=== PATIENT | female | born 1960 | race African-American/Black ===

== ENCOUNTER 2020-04-27 05:28 | Inpatient (IN) | payer BC ==
[2020-04-27] MEDS ORDERED: HEPARIN NA (PORCINE) 5,000 UNITS/ML 1ML VIAL ONE (07:32)
[2020-04-27] MEDS ORDERED: THROMBIN (BOVINE) 20,000 UNIT VIAL TP ONE (07:32)
[2020-04-27] MEDS ORDERED: MIDAZOLAM HCL 2 MG/2 ML SINGLE DOSE VIAL ONE (07:41)
[2020-04-27] MEDS ORDERED: PROPOFOL 20 ML ONE ×11 (07:42)
[2020-04-27] MEDS ORDERED: SUCCINYLCHOLINE CHLORIDE 200 MG/10 ML SYRINGE ONE ×2 (08:08→08:26)
[2020-04-27] MEDS ORDERED: fentaNYL CITRATE 250 MCG/5 ML VIAL ONE ×3 (08:17)
[2020-04-27] MEDS ORDERED: BENZOIN/ALOE VERA/STORAX/TOLU 58 ML BOTTLE ONE (08:30)
[2020-04-27] MEDS ORDERED: THROMBIN (BOVINE) 5,000 UNIT VIAL TP ONE ×3 (08:30→09:38)
[2020-04-27] MEDS ORDERED: VANCOMYCIN 1,000 MG VIAL (RESTRICTED TO ID ONLY) ONE (08:35)
[2020-04-27] MEDS ORDERED: ceFAZolin 2 GRAM PREMIX BAG IVPB ONE (08:35)
[2020-04-27] MEDS ORDERED: ceFAZolin SODIUM 1 GM VIAL ONE ×3 (08:35→15:00)
[2020-04-27] MEDS ORDERED: VANCOMYCIN 1,000 MG VIAL (RESTRICTED TO ID ONLY) IVPB ONE (08:37)
[2020-04-27] MEDS ORDERED: ONDANSETRON 4 MG/2 ML VIAL IVPUSH PRN ×3 (12:44→13:03)
--- NOTE | 2020-04-27 12:51 | PN ---
Progress Note (short form) - Note Progress Note: 59F s/p C4 corpectomy, partial corpectomies C3, C5, C3-C5 anterior cervical decompression, cage reconstruction, and instrumented fusion POD #0. -Admit to ICU for overnight post-op airway observation. -Airway observation: In case of emergency, remove anterior cervical spine dressing, trim single end loop, and pull out running suture; ok to cut suture if needed to decompress hematoma. -Maintain head of bed 30-45 degrees. -Pain medication: per anaesthesia team; oral meds (oxycodone preferred), no PREPARATION PLANT REPAIRER; NO NSAID's. -Hard cervical spine collar. -f/u drain output. -DVT PPx: -Mechanical only: MARKELL's, SCD's. -Post-op Ancef x 3 doses. -f/u AM labs. -Incentive spirometry. -PT/OT/Rehab, OOB. -WBAT B/L LE. -PWB B/L UE: 5lbs. -d/c Westfall catheter in PACU; f/u TOV (8 hours max). -Decadron 10mg IV at midnight tonight. -Keep dressing clean & dry. -No heavy lifting (>5 lbs), bending or twisting x 6 months post op. -Start with puree diet; advance diet as tolerated. -B/L UE & LE NV checks. -f/u post-op x-rays tomorrow. -Care per ICU & [facility] primary medical hospitalist team. -Discharge planning: f/u [facility] [place] office 7-10 days after discharge; call for appointment; . Luis F Morejon MD (Orthopaedic Surgery).
--- NOTE | 2020-04-27 12:58 | OP ---
Operative Note - Note: Operative Date: 04/27/20 Pre-Operative Diagnosis: 1. 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 2. Severe C3-C5 stenosis with myelomalacia. 3. C3-C5 kyphotic deformity Operation: 1. C3-C4 discectomy. 2. C3 cranial hemicorpectomy. 3. C4 corpectomy. 4. C5 caudal hemicorpectomy. 5. C4-C5 discectomy. 6. Insertional corpectomy cage/intervertebral mechanical device C3-C5. 7. C3-C4 anterior arthrodesis. 8. C4-C5 anterior arthrodesis. 9. C3-C5 anterior instrumentation. 10. Deformity correction (kyphosis) with gnosticist of lordosis. 11. Bone autograft. 12. Bone allograft. 13. Microsurgical dissection. 14. Fluoroscopy Findings: 1. Severe C3-C5 spinal stenosis; spinal cord bulging into field following decompression 2. Anterior wedging/collapse of C5 vertebrae, necessitating hemicorpectomy to level/flatten the end plate and prevent corpectomy cage migration 3. Improvement in LUE MEP's following decompression Implants: Corpectomy Cage: [employer] [place]. 30mm x [id number]. Plate: Precision Slimplicity. 35mm. Screws: 4 x 4x12mm Post-Operative Diagnosis: Same as Pre-op Surgeon: Luis F Morejon Inclusion Special Educator: Rayshawn Morejon Anesthesiologist/HISTORIC SITES SUPERVISOR: Shade Terry Anesthesia: General Specimens Removed: C3-C4, C4-C5 discs Estimated Blood Loss (mls): 100 Drains & Tubes with Location: 1 x deep HemoVac Fluid Volume Replaced (mls): 2,000 (Crystalloid) Operative Report Dictated: Yes
[2020-04-27] MEDS ORDERED: PROMETHAZINE HCL 25 MG/1 ML VIAL IVPUSH PRN (13:02)
[2020-04-27] MEDS ORDERED: DEXAMETHASONE SOD PHOSPHATE 4 MG/1 ML VIAL IVPUSH PRN (13:03)
[2020-04-27] MEDS ORDERED: PROMETHAZINE HCL 25 MG/1 ML VIAL IVPB PRN (13:03)
[2020-04-27] MEDS ORDERED: HYDROmorphone *PCA* 10MG/50ML DISP.SYRIN PCA SCH (13:15)
[2020-04-27] MEDS ORDERED: HYDROmorphone *PCA* 10MG/50ML DISP.SYRIN ONE (13:31)
[2020-04-27] MEDS: ceFAZolin 2 GRAM PREMIX BAG IVPB SCH ×2 (15:05→20:09)
--- NOTE | 2020-04-27 19:22 | CONSULT ---
Consultation: REQUESTING PROVIDER: Dr. Morejon CONSULT REQUEST: We have been asked to medically evaluate this patient for post- op airway observation. HISTORY OF PRESENT ILLNESS: 59 YO F with PMH HTN, HLD, and depression presents with severe C3-C5 interverteberal disc prolapse with spondylotic myelopathy/radiculopathy with severe c3-c5 stenosis with myelomalacia and c3-c5 kyphotic deformity. Underwent C4 corpectomy, partial corpectomies C3, C5, C3-C5 anterior cervical decompressio n, cage reconstruction, and instrumented fusion today. Admitted to ICU for post- op airway observation Her current condition began in August 2019 with neck pain associated with tingling and right pain in her Right shoulder that later spread to her hand. She later developed sharp Left buttock pain. Patient tried using NSAIDs and tylenol to alleviate the pain. The pain was worsened by movement, bending, and prolonged sitting. The pain did not improve, so she saw her orthopedic surgeon. Patient underwent surgery today. Patient does not assisstive devices for walking. PCP: Dr. Chuy Pak PSH: 2 knee replacements, tibial fracture repair, gallbladder, uterine artery embolization for fibroids REVIEW OF SYSTEMS: CONSTITUTIONAL: Absent: fever, chills, diaphoresis, generalized weakness, malaise, loss of appetite, weight change HEENT: Absent: rhinorrhea, nasal congestion, throat pain, throat swelling, difficulty swallowing, mouth swelling, ear pain, eye pain, visual changes CARDIOVASCULAR: Absent: chest pain, syncope, palpitations, irregular heart rate, lightheadedness, peripheral edema RESPIRATORY: Absent: cough, shortness of breath, dyspnea with exertion, orthopnea, wheezing, stridor, hemoptysis GASTROINTESTINAL: Absent: abdominal pain, abdominal distension, nausea, vomiting, diarrhea, constipation, melena, hematochezia GENITOURINARY: Absent: dysuria, frequency, urgency, hesitancy, hematuria, flank pain, genital pain MUSCULOSKELETAL: neck pain Absent: myalgia, arthralgia, joint swelling, back pain, SKIN: Absent: rash, itching, pallor HEMATOLOGIC/IMMUNOLOGIC: Absent: easy bleeding, easy bruising, lymphadenopathy, frequent infections ENDOCRINE: Absent: unexplained weight gain, unexplained weight loss, heat intolerance, cold intolerance NEUROLOGIC: Absent: headache, focal weakness or paresthesias, dizziness, unsteady gait, seizure, mental status changes, bladder or bowel incontinence PSYCHIATRIC: Absent: anxiety, depression, suicidal or homicidal ideation, hallucinations. PHYSICAL EXAMINATION Vital Signs - 24 hr 04/27/20 04/27/20 04/27/20 06:35 06:38 06:39 Temperature 97.3 F L 97.3 F L Pulse Rate 63 63 Respiratory 20 20 Rate Blood Pressure 125/77 125/77 O2 Sat by Pulse 99 99 99 Oximetry (%) 04/27/20 04/27/20 04/27/20 13:00 13:15 13:30 Temperature 98.4 F Pulse Rate 95 H 88 7 L Respiratory 11 19 11 Rate Blood Pressure 137/72 138/69 114/95 O2 Sat by Pulse 99 100 100 Oximetry (%) 04/27/20 04/27/20 04/27/20 13:45 13:48 14:00 Temperature Pulse Rate 82 82 72 Respiratory 15 15 12 Rate Blood Pressure 136/81 136/81 143/76 O2 Sat by Pulse 100 100 100 Oximetry (%) 04/27/20 04/27/20 04/27/20 14:15 14:20 14:30 Temperature Pulse Rate 74 77 80 Respiratory 12 12 18 Rate Blood Pressure 128/71 143/76 126/74 O2 Sat by Pulse 100 100 100 Oximetry (%) 04/27/20 04/27/20 04/27/20 14:45 14:50 15:00 Temperature Pulse Rate 70 79 73 Respiratory 12 13 18 Rate Blood Pressure 96/77 126/73 126/73 O2 Sat by Pulse 100 100 100 Oximetry (%) 04/27/20 04/27/20 04/27/20 15:15 15:19 15:20 Temperature 98.4 F Pulse Rate 88 70 72 Respiratory 12 12 17 Rate Blood Pressure 143/67 143/70 143/70 O2 Sat by Pulse 100 100 100 Oximetry (%) 04/27/20 04/27/20 04/27/20 15:55 16:44 17:00 Temperature 98.3 F Pulse Rate 76 84 70 Respiratory 20 20 20 Rate Blood Pressure 148/67 135/92 141/69 O2 Sat by Pulse 100 100 100 Oximetry (%) 04/27/20 04/27/20 04/27/20 17:55 18:00 19:10 Temperature Pulse Rate 80 76 Respiratory 20 20 20 Rate Blood Pressure 141/69 148/67 O2 Sat by Pulse 100 100 100 Oximetry (%) GENERAL: Awake, alert, and fully oriented, in no acute distress. HEENT: head NC, AT, PERRL, MMM NECK: anterior incision , nakia drain LUNGS: Breath sounds equal, clear to auscultation bilaterally. No wheezes, and no crackles. No accessory muscle use. HEART: Regular rate and rhythm, normal S1 and S2 without murmur, rub or gallop. ABDOMEN: obese Soft, nontender, not distended, normoactive bowel sounds, no guarding, no rebound EXTREMITIES: 2+ pulses, warm, well-perfused. No cyanosis. No clubbing. Cap refill <2 seconds. No peripheral edema. b/l UE & LE strength 5/5, sensation intact NEUROLOGICAL: Normal speech. gait not assessed PSYCHIATRIC: Cooperative. Good eye contact. Appropriate mood and affect. SKIN: Warm, dry, normal turgor, no rashes or lesions noted. Laboratory Results - last 24 hr 04/27/20 06:13 Blood Type O POSITIVE Antibody Screen Negative Active Medications Generic Name Dose Route Start Last Admin Trade Name Freq PRN Reason Stop Dose Admin Atorvastatin Calcium 10 mg 04/27/20 22:00 Lipitor - PO HS BRENDA Cefazolin Sodium/Dextrose 2 gm 04/27/20 14:00 04/27/20 15:05 Ancef 2 Gm Premixed Ivpb - IVPB 04/28/20 02:01 2 gm Q6H BRENDA Administration Dexamethasone Sodium Phosphate 10 mg 04/27/20 23:45 Decadron Injection - IVPUSH 04/27/20 23:46 ONCE ONE Dexamethasone Sodium Phosphate 4 mg 04/27/20 13:03 Decadron Injection - IVPUSH ONCE PRN NAUSEA AND/OR VOMITING Diphenhydramine HCl 12.5 mg 04/27/20 13:03 Benadryl Injection - IVPUSH ONCE PRN FOR ITCHING Fentanyl 50 mcg 04/27/20 13:02 04/27/20 13:42 Sublimaze Injection - IVPUSH 50 mcg [id number] PRN Administration PAIN-PACU ORDER X 4 DOSES ONLY Hydrochlorothiazide 12.5 mg 04/28/20 10:00 Hctz - PO DAILY BRENDA Hydromorphone HCl 10 mg 04/27/20 13:15 04/27/20 13:48 Hydromorphone 10 Mg/50 Ml-Ns PLANT WIRE CHIEF 04/28/20 13:14 10 mg PLANT WIRE CHIEF BRENDA Administration Protocol Lactated Ringer's 1,000 mls @ 125 mls/hr 04/27/20 12:45 Lactated Ringers Solution IV ASDIR BRENDA Lisinopril 10 mg 04/28/20 10:00 Prinivil PO DAILY BRENDA Metoprolol Tartrate 50 mg 04/27/20 22:00 Lopressor - PO BID BRENDA Nicotine 21 mg 04/28/20 10:00 Nicoderm Patch - TD DAILY [facility] Ondansetron HCl 4 mg 04/27/20 12:44 Zofran Injection IVPUSH Q6H PRN NAUSEA AND/OR VOMITING Ondansetron HCl 4 mg 04/27/20 13:02 Zofran Injection IVPUSH Q6H PRN NAUSEA AND/OR VOMITING Ondansetron HCl 4 mg 04/27/20 13:03 Zofran Injection IVPUSH Q4H PRN NAUSEA AND/OR VOMITING Oxycodone HCl 5 mg 04/27/20 12:44 Roxicodone - PO Q4H PRN PAIN LEVEL 1-5 Oxycodone HCl 10 mg 04/27/20 12:44 Roxicodone - PO Q4H PRN PAIN LEVEL 6-10 Paroxetine HCl 10 mg 04/28/20 10:00 Paxil - PO DAILY [facility] Promethazine HCl 12.5 mg 04/27/20 13:02 Phenergan Injection - IVPUSH Q6H PRN NAUSEA-FOR RESCUE AFTER 15 MIN Promethazine HCl 12.5 mg 04/27/20 13:03 Phenergan Injection - IVPB Q6H PRN NAUSEA AND/OR VOMITING ASSESSMENT/PLAN: 59 YO F with PMH HTN, HLD, and depression presents for POD#0 c4 corpectomy, partial corpectomies C3, C5, C3-C5 anterior cervical decompression, cage reconstruction, and instrumented fusion. Admitted to ICU for post-op airway observation. Neuro -POD#0 c4 corpectomy, partial corpectomies C3, C5, C3-C5 anterior cervical decompression, cage reconstruction, and instrumented fusion - In emergency situations, remove anterior cervical spine dressing, trim single end loop, and pull out running suture. Okay to cut suture to decompress hematoma if needed -Maintain head of bed 30-45 degrees. -oxycodone for pain. no PLANT WIRE CHIEF; NO NSAID's. -Post-op cefazolin 2 gm IVPB Q6H for 3 doses. -encourage incentive spirometry. -PT/OT/Rehab, OOB. -WBAT B/L LE. -Decadron 10mg IV at midnight -f/u spinal x-ray. f/u drain output -nakia drain draining serosanguineous blood Cardio HTN: restart home rx metoprolol 50 mg PO BID, lisinopril 10 mg PO daily, hydrochlorothiazide 12.5 mg PO daily HLD: simvastatin 10 mg PO HS Pulm no acute issues at this time GI no acute issues at this time promethazine 12.5 mg IV push Q6H PRN for nausea/vomiting ondansetron 4 mg IV push Q6 H PRN (2 doses max), and ondansetron 4 mg IV PUSH Q4H PRN (max 4 doses) Renal no lab values in record. will order in AM. 2800 ml I/ 400 ml O/2400 ml balance ID COVID negative ENDO no acute issues at this time will order A1C #Psych depression -home rx paroxetine 12.5 mg PO daily #FEN LR @125 ml/hr monitor lytes puree diet. advance as tolerated #DVT PPX -Mechanical only (MARKELL's, SCD's) per ortho note #DISPO maintain ICU Dispo: We will continue to follow the patient. Thank you for this consultative opportunity. Visit type - Emergency Visit Emergency Visit: Yes ED Registration Date: 04/27/20 Care time: The patient presented to the Emergency Department on the above date and was hospitalized for further evaluation of their emergent condition. - New Patient This patient is new to me today: No - Critical Care Critical Care patient: No ATTENDING PHYSICIAN STATEMENT I saw and evaluated the patient. I reviewed the resident's note and discussed the case with the resident. I agree with the resident's findings and plan as documented. SUBJECTIVE: OBJECTIVE: ASSESSMENT AND PLAN:
[2020-04-27] MEDS: METOPROLOL TARTRATE 50 MG TABLET (FP) PO SCH (21:04)
[2020-04-27] MEDS: ATORVASTATIN CA 10 MG TABLET (FP) PO SCH (21:04)
[2020-04-27] MEDS: oxyCODONE HCL 5 MG TABLET PO PRN (22:48)
[2020-04-27] MEDS: LACTATED RINGERS SOLUTION 1,000 ML IV SCH (23:30)
[2020-04-27] MEDS ORDERED: DEXAMETHASONE SOD PHOSPHATE 10 MG/1 ML VIAL IVPUSH ONE (23:45)
[2020-04-28] MEDS: ceFAZolin 2 GRAM PREMIX BAG IVPB SCH (01:29)
[2020-04-28 06:20] LABS: BASO % 0.3 % (0-2.0); HEMATOCRIT 33.4 % (32.4-45.2); HEMOGLOBIN 11.1 GM/dL (10.7-15.3); LYMPH % 10.1 % (8-40); MCH 31.4 pg (25.7-33.7); MCHC 33.3 g/dl (32.0-36.0); MEAN CELL VOLUME 94.5 fl (80-96); MEAN PLT VOLUME 8.8 fl (7.5-11.1); MONO % 1.1 % (3.8-10.2); NEUT % 88.5 % (42.8-82.8); PLATELET COUNT 273 K/MM3 (134-434); RBC 3.53 M/mm3 (3.60-5.2); RDW 12.7 % (11.6-15.6); WHITE BLOOD COUNT 13.5 K/mm3 (4.0-10.0)
[2020-04-28 06:53] LABS: ALBUMIN 3.3 g/dl (3.4-5.0); BILIRUBIN,TOTAL 0.6 mg/dL (0.2-1); CALCIUM 8.4 mg/dL (8.5-10.1); CREATININE 0.8 mg/dL (0.55-1.3); MAGNESIUM 1.6 mg/dL (1.8-2.4); POTASSIUM 4.3 mmol/L (3.5-5.1); TOT PROT 6.5 g/dl (6.4-8.2)
[2020-04-28] MEDS ORDERED: MAGNESIUM SULF 50% (8.12 MEQ/2 ML-1 GM VIAL) IVPB ONE (08:36)
[2020-04-28] MEDS ORDERED: MAGNESIUM SULFATE IN WATER 2 GM/50 ML IVPB IVPB ONE (08:45)
[2020-04-28] MEDS: LISINOPRIL 10 MG TABLET (FP) PO SCH (10:13)
[2020-04-28] MEDS: METOPROLOL TARTRATE 50 MG TABLET (FP) PO SCH ×2 (10:13→21:53)
[2020-04-28] MEDS: HYDROCHLOROTHIAZIDE 12.5 MG CAPSULE (FP) PO SCH (10:14)
[2020-04-28] MEDS: PARoxetine HCL 10 MG TABLET PO SCH (10:16)
[2020-04-28] MEDS: NICOTINE 21 MG/24 HOURS TOPICAL PATCH TD SCH (10:16)
[2020-04-28] MEDS: LACTATED RINGERS SOLUTION 1,000 ML IV SCH ×2 (10:16→19:00)
--- NOTE | 2020-04-28 10:45 | PN ---
Teaching Attending Note Name of Resident: Lewis Onofre ATTENDING PHYSICIAN STATEMENT I saw and evaluated the patient. I reviewed the resident's note and discussed the case with the resident. I agree with the resident's findings and plan as documented. SUBJECTIVE: Pt seen and examined in the ICU. Pain relatively controlled. No nausea/vomiting. Tolerated clears this AM. No flatus yet. OBJECTIVE: Vital Signs Period Temp Pulse Resp BP Sys/Fonseca Pulse Ox Last 24 Hr 98.1 F-98.4 F 7-95 11-20 96-148/63-95 98-100 Intake & Output 04/25/20 04/26/20 04/27/20 04/28/20 23:59 23:59 23:59 23:59 Intake Total 2800 Output Total 400 Balance 2400 Weight 89.358 kg Gen: NAD in cervical collar Heart: RRR Lung: decreased breath sounds at the bases Abd: soft, nontender Ext: no edema CBC, BMP 04/28/20 05:50 04/28/20 05:50 Active Medications Atorvastatin Calcium (Lipitor -) 10 mg PO HS [facility] Last Admin: 04/27/20 21:04 Dose: 10 mg Documented by: Dexamethasone Sodium Phosphate (Decadron Injection -) 4 mg IVPUSH ONCE PRN PRN Reason: NAUSEA AND/OR VOMITING Diphenhydramine HCl (Benadryl Injection -) 12.5 mg IVPUSH ONCE PRN PRN Reason: FOR ITCHING Fentanyl (Sublimaze Injection -) 50 mcg IVPUSH [id number] PRN PRN Reason: PAIN-PACU ORDER X 4 DOSES ONLY Last Admin: 04/27/20 13:42 Dose: 50 mcg Documented by: Hydrochlorothiazide (Hctz -) 12.5 mg PO DAILY [facility] Last Admin: 04/28/20 10:14 Dose: 12.5 mg Documented by: Hydromorphone HCl (Hydromorphone 10 Mg/50 Ml-Ns) 10 mg PLUG DRILL OPERATOR PLUG DRILL OPERATOR [facility]; Protocol Stop: 04/28/20 13:14 Last Admin: 04/27/20 13:48 Dose: 10 mg Documented by: Lactated Ringer's (Lactated Ringers Solution) 1,000 mls @ 125 mls/hr IV ASDIR [facility] Last Admin: 04/28/20 10:16 Dose: 125 mls/hr Documented by: Lisinopril (Prinivil) 10 mg PO DAILY [facility] Last Admin: 04/28/20 10:13 Dose: 10 mg Documented by: Metoprolol Tartrate (Lopressor -) 50 mg PO BID [facility] Last Admin: 04/28/20 10:13 Dose: 50 mg Documented by: Nicotine (Nicoderm Patch -) 21 mg TD DAILY [facility] Last Admin: 04/28/20 10:16 Dose: 21 mg Documented by: Ondansetron HCl (Zofran Injection) 4 mg IVPUSH Q6H PRN PRN Reason: NAUSEA AND/OR VOMITING Ondansetron HCl (Zofran Injection) 4 mg IVPUSH Q6H PRN PRN Reason: NAUSEA AND/OR VOMITING Ondansetron HCl (Zofran Injection) 4 mg IVPUSH Q4H PRN PRN Reason: NAUSEA AND/OR VOMITING Oxycodone HCl (Roxicodone -) 5 mg PO Q4H PRN PRN Reason: PAIN LEVEL 1-5 Last Admin: 04/27/20 22:48 Dose: 5 mg Documented by: Oxycodone HCl (Roxicodone -) 10 mg PO Q4H PRN PRN Reason: PAIN LEVEL 6-10 Paroxetine HCl (Paxil -) 10 mg PO DAILY [facility] Last Admin: 04/28/20 10:16 Dose: 10 mg Documented by: Promethazine HCl (Phenergan Injection -) 12.5 mg IVPUSH Q6H PRN PRN Reason: NAUSEA-FOR RESCUE AFTER 15 MIN Promethazine HCl (Phenergan Injection -) 12.5 mg IVPB Q6H PRN PRN Reason: NAUSEA AND/OR VOMITING ASSESSMENT AND PLAN: Cervical Spinal Stenosis with Myelopathy and Radiculopathy s/p C3-C4 discectomy/cranial hemicorpectomy/C4 corpectomy/C5 caudal hemicorpectomy/C4-C5 discectomy/Insertional corpectomy cage/intervertebral mechanical device C3-C5 HTN Hyperlipidemia - pain control - incentive spirometry - PO/activity/noguera/dispo per surgery - DVT prophylaxis
--- OUTSIDE RECORDS SUMMARY | 2020-04-28 11:55 | XMS ---
:1960 Author Organization [facility] Support Name Relationship Address Phone VERIZON Unavailable [address] [place] [address] MARILYN KING DAUGHTER [address] [phone] [place] [address] Re-disclosure Warning The records that you are about to access may contain information from federally- assisted alcohol or drug abuse programs. If such information is present, then the following federally mandated warning applies: This information has been disclosed to you from records protected by federal confidentiality rules (42 CFR part 2). The federal rules prohibit you from making any further disclosure of this information unless further disclosure is expressly permitted by the written consent of the person to whom it pertains or as otherwise permitted by 42 CFR part 2. A general authorization for the release of medical or other information is NOT sufficient for this purpose. The Federal rules restrict any use of the information to criminally investigate or prosecute any alcohol or drug abuse patient.The records that you are about to access may contain highly sensitive health information, the redisclosure of which is protected by Article 27-F of the [facility] Public Health law. If you continue you may haveaccess to information: Regarding HIV / AIDS; Provided by facilities licensed or operated by the [facility] Office of Mental Health; or Provided by the [facility] Office for People With Developmental Disabilities. If such information is present, then the following [facility] mandated warning applies: This information has been disclosed to you from confidential records which are protected by state law. State law prohibits you from making any further disclosure of this information without the specific written consent of the person to whom it pertains, or as otherwise permitted by law. Any unauthorized further disclosure in violation of state law may result in a fine or long term sentence or both. A general authorization for the release of medical or other information is NOT sufficient authorization for further disclosure. Insurance Providers Payer name Policy type / Policy ID Covered Covered democrat's Policy Plan Coverage type democrat ID relationship to Orte[employer] Information ortega BC OUT OF [id number] [id number] BC OUT OF [id number] SP [id number] [id number] Results ID Date Data Source [id number] 04/22/2020 01:30:00 PM EDT [facility] Name Value Range Interpretation Description Data Sup porting Code Source(s) Document(s ) SARS [facility] coronavirus 2 RNA This lab was ordered by [facility] and reported by [facility]. Procedure
--- NOTE | 2020-04-28 12:27 | PN ---
Physical Exam: SUBJECTIVE: Patient seen and examined. No overnight events. Endorses mild pain that is controlled with medication. Denies N/V, flatus, or bowel movement. 10 cc of sanguinous fluid draining from nakia drain. Tolerated pureed diet overnight. OBJECTIVE: Vital Signs Period Temp Pulse Resp BP Sys/Fonseca Pulse Ox Last 24 Hr 98.1 F-98.4 F 7-95 11-20 96-148/63-95 98-100 GENERAL: Awake, alert, and fully oriented, in no acute distress. HEENT: head NC, AT, PERRL, MMM NECK: anterior incision , nakia drain LUNGS: Breath sounds equal, clear to auscultation bilaterally. No wheezes, and no crackles. No accessory muscle use. HEART: Regular rate and rhythm, normal S1 and S2 without murmur, rub or gallop. ABDOMEN: obese Soft, nontender, not distended, normoactive bowel sounds, no guarding, no rebound EXTREMITIES: 2+ DP/TP pulses, warm, well-perfused. No cyanosis. No clubbing. Cap refill <2 seconds. No peripheral edema. b/l UE & LE strength 5/5, sensation intact NEUROLOGICAL: Cranial nerves II through XII intact. Normal speech. gait not assessed PSYCHIATRIC: Cooperative. Good eye contact. Appropriate mood and affect. SKIN: Warm, dry, normal turgor, no rashes or lesions noted. Laboratory Results - last 24 hr 04/28/20 04/28/20 05:50 05:50 WBC 13.5 H RBC 3.53 L Hgb 11.1 Hct 33.4 MCV 94.5 MCH 31.4 MCHC 33.3 RDW 12.7 Plt Count 273 MPV 8.8 Absolute Neuts (auto) 11.9 H Neutrophils % 88.5 H Lymphocytes % 10.1 Monocytes % 1.1 L Eosinophils % 0.0 Basophils % 0.3 Nucleated RBC % 0 Sodium 141 Potassium 4.3 Chloride 109 H Carbon Dioxide 28 Anion Gap 5 L BUN 12.0 Creatinine 0.8 Est GFR (CKD-EPI)AfAm 92.87 Est GFR (CKD-EPI)NonAf 80.13 Random Glucose 142 H Calcium 8.4 L Phosphorus 4.0 Magnesium 1.6 L Total Bilirubin 0.6 AST 54 H ALT 57 Alkaline Phosphatase 64 Total Protein 6.5 Albumin 3.3 L Active Medications Generic Name Dose Route Start Last Admin Trade Name Freq PRN Reason Stop Dose Admin Atorvastatin Calcium 10 mg 04/27/20 22:00 04/27/20 21:04 Lipitor - PO 10 mg HS BRENDA Administration Dexamethasone Sodium Phosphate 4 mg 04/27/20 13:03 Decadron Injection - IVPUSH ONCE PRN NAUSEA AND/OR VOMITING Diphenhydramine HCl 12.5 mg 04/27/20 13:03 Benadryl Injection - IVPUSH ONCE PRN FOR ITCHING Fentanyl 50 mcg 04/27/20 13:02 04/27/20 13:42 Sublimaze Injection - IVPUSH 50 mcg [id number] PRN Administration PAIN-PACU ORDER X 4 DOSES ONLY Hydrochlorothiazide 12.5 mg 04/28/20 10:00 04/28/20 10:14 Hctz - PO 12.5 mg DAILY BRENDA Administration Hydromorphone HCl 10 mg 04/27/20 13:15 04/27/20 13:48 Hydromorphone 10 Mg/50 Ml-Ns MANAGER BEVERAGE 04/28/20 13:14 10 mg MANAGER BEVERAGE BRENDA Administration Protocol Lactated Ringer's 1,000 mls @ 125 mls/hr 04/27/20 12:45 04/28/20 10:16 Lactated Ringers Solution IV 125 mls/hr ASDIR BRENDA Administration Lisinopril 10 mg 04/28/20 10:00 04/28/20 10:13 Prinivil PO 10 mg DAILY BRENDA Administration Metoprolol Tartrate 50 mg 04/27/20 22:00 04/28/20 10:13 Lopressor - PO 50 mg BID BRENDA Administration Nicotine 21 mg 04/28/20 10:00 04/28/20 10:16 Nicoderm Patch - TD 21 mg DAILY BRENDA Administration Ondansetron HCl 4 mg 04/27/20 12:44 Zofran Injection IVPUSH Q6H PRN NAUSEA AND/OR VOMITING Ondansetron HCl 4 mg 04/27/20 13:02 Zofran Injection IVPUSH Q6H PRN NAUSEA AND/OR VOMITING Ondansetron HCl 4 mg 04/27/20 13:03 Zofran Injection IVPUSH Q4H PRN NAUSEA AND/OR VOMITING Oxycodone HCl 5 mg 04/27/20 12:44 09/14/20 22:48 Roxicodone - PO 5 mg Q4H PRN Administration PAIN LEVEL 1-5 Oxycodone HCl 10 mg 04/27/20 12:44 Roxicodone - PO Q4H PRN PAIN LEVEL 6-10 Paroxetine HCl 10 mg 04/28/20 10:00 04/28/20 10:16 Paxil - PO 10 mg DAILY BRENDA Administration Promethazine HCl 12.5 mg 04/27/20 13:02 Phenergan Injection - IVPUSH Q6H PRN NAUSEA-FOR RESCUE AFTER 15 MIN Promethazine HCl 12.5 mg 04/27/20 13:03 Phenergan Injection - IVPB Q6H PRN NAUSEA AND/OR VOMITING ASSESSMENT/PLAN: 59 YO F with PMH HTN, HLD, and depression presents for POD#1 c4 corpectomy, partial corpectomies C3, C5, C3-C5 anterior cervical decompression, cage reconstruction, and instrumented fusion. Admitted to ICU for post-op airway observation. Neuro -POD#1 c4 corpectomy, partial corpectomies C3, C5, C3-C5 anterior cervical decompression, cage reconstruction, and instrumented fusion - In emergency situations, remove anterior cervical spine dressing, trim single end loop, and pull out running suture. Okay to cut suture to decompress hematoma if needed -Maintain head of bed 30-45 degrees. -oxycodone for pain. no MANAGER BEVERAGE; NO NSAID's. -s/p cefazolin 2 gm IVPB Q6H for 3 doses. -encourage incentive spirometry. -PT/OT/Rehab, OOB. -WBAT B/L LE. -Decadron 10mg IV at midnight -f/u spinal x-ray. f/u drain output -nakia drain draining blood -X-ray c-spine: reveals anterior fusion from C3-C5. There is drain/brace/straightening. Some arthritic findings Cardio HTN: home rx metoprolol 50 mg PO BID, lisinopril 10 mg PO daily, hydrochlorothiazide 12.5 mg PO daily HLD: simvastatin 10 mg PO HS Pulm no acute issues at this time GI no acute issues at this time promethazine 12.5 mg IV push Q6H PRN for nausea/vomiting ondansetron 4 mg IV push Q6 H PRN (2 doses max), and ondansetron 4 mg IV PUSH Q4H PRN (max 4 doses) Heme leukocytosis. WBC 13.5, likely 2/2 decadron Renal no acute issues BUN/Cr 12/0.8 2800 ml I/ 400 ml O/2400 ml balance ID COVID negative. remains afebrile ENDO no acute issues at this time will order A1C #Psych depression -home rx paroxetine 12.5 mg PO daily #FEN LR @125 ml/hr monitor lytes puree diet. advance as tolerated #DVT PPX -Mechanical only (MARKELL's, SCD's) per ortho note #DISPO maintain ICU Visit type - Emergency Visit Emergency Visit: Yes ED Registration Date: 04/27/20 Care time: The patient presented to the Emergency Department on the above date and was hospitalized for further evaluation of their emergent condition. - New Patient This patient is new to me today: No - Critical Care Critical Care patient: No ATTENDING PHYSICIAN STATEMENT I saw and evaluated the patient. I reviewed the resident's note and discussed the case with the resident. I agree with the resident's findings and plan as documented. SUBJECTIVE: OBJECTIVE: ASSESSMENT AND PLAN:
--- NOTE | 2020-04-28 14:00 | PN ---
Progress Note (short form) - Note Progress Note: Anesthesiologist post op note, POD#1. S/P 1. C3-C4 discectomy. 2. C3 cranial hemicorpectomy. 3. C4 corpectomy. 4. C5 caudal hemicorpectomy. 5. C4-C5 discectomy. 6. Insertional corpectomy cage/intervertebral mechanical device C3-C5. 7. C3-C4 anterior arthrodesis. 8. C4-C5 anterior arthrodesis. 9. C3-C5 anterior instrumentation. 10. Deformity correction (kyphosis) with pentecostal of lordosis. 11. Bone autograft. 12. Bone allograft. 13. Microsurgical dissection. 14. Fluoroscopy under GETA. ANIMATION ARTIST dilaudid for post op pain. Patient seen and examined. VSS. Sitting in the chair. Pain 5/10. Using ANIMATION ARTIST. Will continue ANIMATION ARTIST. will follow up tomorrow. No apparent post anesthesia complictions.
[2020-04-28] MEDS ORDERED: HYDROmorphone *PCA* 10MG/50ML DISP.SYRIN PCA SCH (19:15)
[2020-04-28] MEDS ORDERED: PCA PUMP NR ONE ×2 (20:11→20:36)
[2020-04-28] MEDS: ATORVASTATIN CA 10 MG TABLET (FP) PO SCH (21:53)
[2020-04-28] MEDS: oxyCODONE HCL 5 MG TABLET PO PRN (21:54)
[2020-04-29] MEDS: oxyCODONE HCL 5 MG TABLET PO PRN ×4 (04:11→21:13)
[2020-04-29] MEDS ORDERED: HYDROmorphone *PCA* 10MG/50ML DISP.SYRIN PCA SCH (08:15)
[2020-04-29] MEDS: HYDROCHLOROTHIAZIDE 12.5 MG CAPSULE (FP) PO SCH (09:41)
[2020-04-29] MEDS: LISINOPRIL 10 MG TABLET (FP) PO SCH (09:41)
[2020-04-29] MEDS: PARoxetine HCL 10 MG TABLET PO SCH (09:41)
[2020-04-29 09:42] LABS: HEMATOCRIT 33.1 % (32.4-45.2); HEMOGLOBIN 11.3 GM/dL (10.7-15.3); MCH 32.4 pg (25.7-33.7); MCHC 34.1 g/dl (32.0-36.0); MEAN CELL VOLUME 94.9 fl (80-96); MEAN PLT VOLUME 9.2 fl (7.5-11.1); PLATELET COUNT 266 K/MM3 (134-434); RBC 3.49 M/mm3 (3.60-5.2); RDW 12.6 % (11.6-15.6); WHITE BLOOD COUNT 13.3 K/mm3 (4.0-10.0)
[2020-04-29] MEDS: NICOTINE 21 MG/24 HOURS TOPICAL PATCH TD SCH (09:42)
[2020-04-29] MEDS: METOPROLOL TARTRATE 50 MG TABLET (FP) PO SCH ×2 (09:42→21:08)
[2020-04-29] MEDS: BENZOCAINE/MENTH/CETYLPYRD CL 1 EACH LOZENGE MM PRN (10:00)
[2020-04-29 10:15] LABS: ALBUMIN 3.3 g/dl (3.4-5.0); BLOOD UREA NITROGEN 10.3 mg/dL (7-18); CALCIUM 8.7 mg/dL (8.5-10.1); POTASSIUM 3.7 mmol/L (3.5-5.1)
[2020-04-29 10:28] LABS: CREATININE 0.7 mg/dL (0.55-1.3); PHOSPHOROUS 2.5 mg/dL (2.5-4.9); TOT PROT 6.4 g/dl (6.4-8.2)
[2020-04-29] MEDS: ACETAMINOPHEN 325 MG TABLET (FP) PO PRN ×2 (10:39→16:00)
--- NOTE | 2020-04-29 11:41 | PN ---
Teaching Attending Note Name of Resident: Lewis Onofre ATTENDING PHYSICIAN STATEMENT I saw and evaluated the patient. I reviewed the resident's note and discussed the case with the resident. I agree with the resident's findings and plan as documented. SUBJECTIVE: Pt seen and examined in the ICU. Pain relatively controlled. No nausea/vomiting. Walked with PT. OBJECTIVE: Vital Signs Period Temp Pulse Resp BP Sys/Fonseca Pulse Ox Last 24 Hr 98.0 F-98.8 F 64-90 12-18 111-180/56-86 94-99 Intake & Output 04/26/20 04/27/20 04/28/20 04/29/20 23:59 23:59 23:59 23:59 Intake Total 2800 1150 50 Output Total 400 710 15 Balance 2400 440 35 Weight 89.358 kg 89 kg Gen: NAD in cervical collar Heart: RRR Lung: decreased breath sounds at the bases Abd: soft, nontender Ext: no edema CBC, BMP 04/29/20 08:40 04/29/20 08:40 Active Medications Acetaminophen (Tylenol -) 650 mg PO Q6H PRN PRN Reason: Fever Last Admin: 04/29/20 10:39 Dose: 650 mg Documented by: Atorvastatin Calcium (Lipitor -) 10 mg PO HS BRENDA Last Admin: 04/28/20 21:53 Dose: 10 mg Documented by: Benzocaine/Menthol (Cepacol Lozenge -) 1 each MM PRN PRN PRN Reason: SORE THROAT Dexamethasone Sodium Phosphate (Decadron Injection -) 4 mg IVPUSH ONCE PRN PRN Reason: NAUSEA AND/OR VOMITING Diphenhydramine HCl (Benadryl Injection -) 12.5 mg IVPUSH ONCE PRN PRN Reason: FOR ITCHING Fentanyl (Sublimaze Injection -) 50 mcg IVPUSH [id number] PRN PRN Reason: PAIN-PACU ORDER X 4 DOSES ONLY Last Admin: 04/27/20 13:42 Dose: 50 mcg Documented by: Hydrochlorothiazide (Hctz -) 12.5 mg PO DAILY [facility] Last Admin: 04/29/20 09:41 Dose: 12.5 mg Documented by: Hydromorphone HCl (Hydromorphone 10 Mg/50 Ml-Ns) 10 mg WOODWORKER HELPER WOODWORKER HELPER [facility]; Protocol Stop: 04/30/20 08:14 Lisinopril (Prinivil) 10 mg PO DAILY [facility] Last Admin: 04/29/20 09:41 Dose: 10 mg Documented by: Metoprolol Tartrate (Lopressor -) 50 mg PO BID [facility] Last Admin: 04/29/20 09:42 Dose: 50 mg Documented by: Nicotine (Nicoderm Patch -) 21 mg TD DAILY [facility] Last Admin: 04/29/20 09:42 Dose: 21 mg Documented by: Ondansetron HCl (Zofran Injection) 4 mg IVPUSH Q4H PRN PRN Reason: NAUSEA AND/OR VOMITING Oxycodone HCl (Roxicodone -) 5 mg PO Q4H PRN PRN Reason: PAIN LEVEL 1-5 Last Admin: 04/27/20 22:48 Dose: 5 mg Documented by: Oxycodone HCl (Roxicodone -) 10 mg PO Q4H PRN PRN Reason: PAIN LEVEL 6-10 Last Admin: 04/29/20 07:59 Dose: 10 mg Documented by: Paroxetine HCl (Paxil -) 10 mg PO DAILY [facility] Last Admin: 04/29/20 09:41 Dose: 10 mg Documented by: Promethazine HCl (Phenergan Injection -) 12.5 mg IVPB Q6H PRN PRN Reason: NAUSEA AND/OR VOMITING ASSESSMENT AND PLAN: Cervical Spinal Stenosis with Myelopathy and Radiculopathy s/p C3-C4 discectomy/cranial hemicorpectomy/C4 corpectomy/C5 caudal hemicorpectomy/C4-C5 discectomy/Insertional corpectomy cage/intervertebral mechanical device C3-C5 HTN Hyperlipidemia - pain control - incentive spirometry - PO/activity/dispo per surgery - DVT prophylaxis
--- NOTE | 2020-04-29 11:58 | PN ---
Physical Exam: SUBJECTIVE: Patient seen and examined. In the evening, PEGA DEVELOPER was stopped and patient was given oxycodone. However, patient continues to have significant pain, so PEGA DEVELOPER was reordered in AM. 15 mL blood drained from Davol drain. Endorsed L sided headache and throat pain, which was managed with lozenges. Endorsed flatus, but denies BM, N/V. Tolerating diet. 100.3 F temp, so tylenol ordered OBJECTIVE: Vital Signs Period Temp Pulse Resp BP Sys/Fonseca Pulse Ox Last 24 Hr 98.0 F-98.8 F 64-90 12-18 111-180/56-86 94-99 GENERAL: Awake, alert, and fully oriented, in no acute distress. HEENT: head NC, AT, PERRL, MMM NECK: anterior incision , nakia drain LUNGS: Breath sounds equal, clear to auscultation bilaterally. No wheezes, and no crackles. No accessory muscle use. HEART: Regular rate and rhythm, normal S1 and S2 without murmur, rub or gallop. ABDOMEN: obese Soft, nontender, not distended, normoactive bowel sounds, no guarding, no rebound EXTREMITIES: 2+ DP/TP pulses, warm, well-perfused. No cyanosis. No clubbing. Cap refill <2 seconds. No peripheral edema. b/l UE & LE strength 5/5, sensation intact NEUROLOGICAL: Cranial nerves II through XII intact. Normal speech. gait not assessed PSYCHIATRIC: Cooperative. Good eye contact. Appropriate mood and affect. SKIN: Warm, dry, normal turgor, no rashes or lesions noted. Laboratory Results - last 24 hr 04/29/20 04/29/20 08:40 08:40 WBC 13.3 H RBC 3.49 L Hgb 11.3 Hct 33.1 MCV 94.9 MCH 32.4 MCHC 34.1 RDW 12.6 Plt Count 266 MPV 9.2 Sodium 143 Potassium 3.7 Chloride 107 Carbon Dioxide 30 Anion Gap 6 L BUN 10.3 Creatinine 0.7 Est GFR (CKD-EPI)AfAm 109.15 Est GFR (CKD-EPI)NonAf 94.17 Random Glucose 87 Calcium 8.7 Phosphorus 2.5 Magnesium 2.0 Total Bilirubin 2.0 H AST 39 H ALT 50 Alkaline Phosphatase 68 Total Protein 6.4 Albumin 3.3 L Active Medications Generic Name Dose Route Start Last Admin Trade Name Freq PRN Reason Stop Dose Admin Acetaminophen 650 mg 04/29/20 10:27 04/29/20 10:39 Tylenol - PO 650 mg Q6H PRN Administration Fever Atorvastatin Calcium 10 mg 04/27/20 22:00 04/28/20 21:53 Lipitor - PO 10 mg HS BRENDA Administration Benzocaine/Menthol 1 each 04/29/20 09:08 Cepacol Lozenge - MM PRN PRN SORE THROAT Dexamethasone Sodium Phosphate 4 mg 04/27/20 13:03 Decadron Injection - IVPUSH ONCE PRN NAUSEA AND/OR VOMITING Diphenhydramine HCl 12.5 mg 04/27/20 13:03 Benadryl Injection - IVPUSH ONCE PRN FOR ITCHING Fentanyl 50 mcg 04/27/20 13:02 04/27/20 13:42 Sublimaze Injection - IVPUSH 50 mcg [id number] PRN Administration PAIN-PACU ORDER X 4 DOSES ONLY Hydrochlorothiazide 12.5 mg 04/28/20 10:00 04/29/20 09:41 Hctz - PO 12.5 mg DAILY BRENDA Administration Hydromorphone HCl 10 mg 04/29/20 08:15 Hydromorphone 10 Mg/50 Ml-Ns PEGA DEVELOPER 04/30/20 08:14 PEGA DEVELOPER [facility] Protocol Lisinopril 10 mg 04/28/20 10:00 04/29/20 09:41 Prinivil PO 10 mg DAILY BRENDA Administration Metoprolol Tartrate 50 mg 04/27/20 22:00 04/29/20 09:42 Lopressor - PO 50 mg BID BRENDA Administration Nicotine 21 mg 04/28/20 10:00 04/29/20 09:42 Nicoderm Patch - TD 21 mg DAILY BRENDA Administration Ondansetron HCl 4 mg 04/27/20 13:03 Zofran Injection IVPUSH Q4H PRN NAUSEA AND/OR VOMITING Oxycodone HCl 5 mg 04/27/20 12:44 04/27/20 22:48 Roxicodone - PO 5 mg Q4H PRN Administration PAIN LEVEL 1-5 Oxycodone HCl 10 mg 04/27/20 12:44 04/29/20 07:59 Roxicodone - PO 10 mg Q4H PRN Administration PAIN LEVEL 6-10 Paroxetine HCl 10 mg 04/28/20 10:00 04/29/20 09:41 Paxil - PO 10 mg DAILY BRENDA Administration Promethazine HCl 12.5 mg 04/27/20 13:03 Phenergan Injection - IVPB Q6H PRN NAUSEA AND/OR VOMITING ASSESSMENT/PLAN: 59 YO F with PMH HTN, HLD, and depression presents for POD#2 c4 corpectomy, partial corpectomies C3, C5, C3-C5 anterior cervical decompression, cage reconstruction, and instrumented fusion. Admitted to ICU for post-op airway observation. Neuro -POD#2 c4 corpectomy, partial corpectomies C3, C5, C3-C5 anterior cervical decompression, cage reconstruction, and instrumented fusion - In emergency situations, remove anterior cervical spine dressing, trim single end loop, and pull out running suture. Okay to cut suture to decompress hematoma if needed -Maintain head of bed 30-45 degrees. -oxycodone for pain. NO NSAID's. -encourage incentive spirometry. -PT/OT/Rehab, OOB. -WBAT B/L LE. -davol drain draining blood -X-ray c-spine: reveals anterior fusion from C3-C5. There is drain/brace/straightening. Some arthritic findings Cardio HTN: home rx metoprolol 50 mg PO BID, lisinopril 10 mg PO daily, hydrochloro thiazide 12.5 mg PO daily HLD: simvastatin 10 mg PO HS Pulm no acute issues at this time GI promethazine 12.5 mg IV push Q6H PRN for nausea/vomiting ondansetron 4 mg IV push Q6 H PRN (2 doses max), and ondansetron 4 mg IV PUSH Q4H PRN (max 4 doses) bilirubin increased from 0.6 to 2. will continue to monitor Heme leukocytosis. WBC decreased from 13.5 to 13.3. likely 2/2 decadron Renal no acute issues BUN/Cr 10.3/0.7 1150 ml I/ 710 ml O/440 ml balance ID COVID negative. 100.3F, Tylenol ordered -s/p 3 doses ancef ENDO no acute issues at this time f/u A1C #Psych depression -home rx paroxetine 12.5 mg PO daily #FEN LR @125 ml/hr monitor lytes puree diet. advance as tolerated #DVT PPX -Mechanical only (MARKELL's, SCD's) per ortho note #DISPO maintain ICU Visit type - Emergency Visit Emergency Visit: Yes ED Registration Date: 04/27/20 Care time: The patient presented to the Emergency Department on the above date and was hospitalized for further evaluation of their emergent condition. - New Patient This patient is new to me today: No - Critical Care Critical Care patient: No ATTENDING PHYSICIAN STATEMENT I saw and evaluated the patient. I reviewed the resident's note and discussed the case with the resident. I agree with the resident's findings and plan as documented. SUBJECTIVE: OBJECTIVE: ASSESSMENT AND PLAN:
--- NOTE | 2020-04-29 13:54 | PN ---
Progress Note (short form) - Note Progress Note: POD#2 Pt states that she was oob and ambulated yesterday around the ICU. Tolerated a diet. Today she had a slight headache which improved with pain medication. Voiding without difficulty Vital Signs Period Temp Pulse Resp BP Sys/Fonseca Pulse Ox Last 24 Hr 98.0 F-98.8 F 64-90 12-18 111-180/56-86 94-99 ALIRIO: 10/15 ml serosangrenous GEN: A&0x3, NAD Heent: ALIRIO removed with the tip intact. Dressing changed. inc c/d/i with steri- strips. 4x4 gauze and tegaderm applied. Neuro: cmm operator strength equal b/l. 5/5 dorsi/plantar/EHL b/l CBC, BMP 04/29/20 08:40 16/ 08:40 A/p: 59 yo female s/p C3-C4 discectomy with C3& C5 hemicorpectomy /C4 corpectomy and cage C3-C5 placement. Deformity correction (kyphosis) with christianity of lordosis . Bone autograft/Bone allograft Pt SURVEY PARTY CHIEF discontinued and will continue with tylenol/oral oxycodone OOB and ambulate/incentive spirometer Drain removed today Plan for discharge in the am, if afebrile and pain controlled D/w Dr. Morejon
[2020-04-29 14:07] VITALS: BMI 32.5
--- NOTE | 2020-04-29 15:33 | HOSP ---
Physical Examination Vital Signs: Vital Signs Temperature 98.2 F 04/29/20 05:00 Pulse Rate 86 04/29/20 10:20 Respiratory Rate 16 04/29/20 10:20 Blood Pressure 138/71 04/29/20 10:20 O2 Sat by Pulse Oximetry (%) 94 L 04/29/20 08:21 Labs: CBC, BMP 04/29/20 08:40 04/29/20 08:40 Hospitalist Encounter Outcome: Patient is a 59 YO F with PMH of HTN, HLD, and depression who presented for surgery for C4 corpectomy, partial corpectomies C3, C5, C3-C5 anterior cervical decompression, cage reconstruction, and instrumented fusion. Her preoperative diagnosis was 1. 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 2. Severe C3-C5 stenosis with myelomalacia. 3. C3-C5 kyphotic deformity. She was admitted to the ICU for post-operative airway observation. Patient had dilaudid ACQUISITIONS EDITOR pump, but is now off of the ACQUISITIONS EDITOR pump. She is on oxycodone for pain and cepacol for throat pain/discomfort. Now s/p doses of ancef. Per ortho note, NO NSAID's were given. X-ray of her c-spine revealed anterior fusion from C3-C5 and also showed a drain/brace/straightening. Patient walked 200 feet on POD#1, and then she walked 300 feet on POD#2. Nausea/vomiting was managed with promethazine and ondansetron. Patient had a temperatuer of 100.3 F today, so Tylenol was given. CBC revealed a leukocytosis that is likely 2/2 dexamethasone. Leukocytosis is improving from 13.5 to 13.3. Mechanical only (MARKELL's, SCD's) per ortho note. Patient is stable for transfer to med surg
--- NOTE | 2020-04-29 17:09 | HOSP ---
Subjective - Review of Symptoms Events since last encounter: Pt was admitted for cervical repair (C3-C4/C4-C5 discectomy, cage insertion, and bone allograft/autograft) and monitored in ICU for pain control and neuro ciro cks. Pt is active with PT, pain is controlled with PO meds. She is able to be monitored on med/surg. A&Ox3, in no acute distress no soft tissue induration in neck CTAB RRR, no murmur moving all 4 extremities Physical Examination Vital Signs: Vital Signs Temperature 98.2 F 04/29/20 05:00 Pulse Rate 88 04/29/20 14:00 Respiratory Rate 16 04/29/20 14:00 Blood Pressure 159/53 L 04/29/20 14:00 O2 Sat by Pulse Oximetry (%) 94 L 04/29/20 08:21 Labs: CBC, BMP 04/29/20 08:40 04/29/20 08:40 Visit type - Emergency Visit Emergency Visit: Yes ED Registration Date: 04/27/20 Care time: The patient presented to the Emergency Department on the above date and was hospitalized for further evaluation of their emergent condition. - New Patient This patient is new to me today: Yes Date on this admission: 04/29/20 - Critical Care Critical Care patient: No
--- NOTE | 2020-04-29 19:33 | OP ---
DATE OF OPERATION: 04/27/2020 SURGEON: Luis F Morejon MD CLINICAL INTERVIEWER: Rayshawn Morejon MD PRE-OPERATIVE DIAGNOSIS: 1. C3-C4, C4-C5 intervertebral disk disorders with associated spondylotic: A. Myelopathy. B. Radiculopathy. 2. Severe C3-C5 cervical spinal stenosis with neurogenic claudication. 3. Cervical kyphosis/deformity. 4. Multi-level axial segmental instability cervical spine with associated myofascial pain complex and cervicothoracic enthesopathy. 5. Progressive neurological decline with gait imbalance/disorder, extremity weakness, and fall risk. POST-OPERATIVE DIAGNOSIS: 1. C3-C4, C4-C5 intervertebral disk disorders with associated spondylotic: A. Myelopathy. B. Radiculopathy. 2. Severe C3-C5 cervical spinal stenosis with neurogenic claudication. 3. Cervical kyphosis/deformity. 4. Multi-level axial segmental instability cervical spine with associated myofascial pain complex and cervicothoracic enthesopathy. 5. Progressive neurological decline with gait imbalance/disorder, extremity weakness, and fall risk. SURGICAL PROCEDURE: 1. C4 corpectomy with resection of osteophytes and posterior longitudinal ligament (92683-60). 2. C3 cranial hemicorpectomy with resection of osteophytes and posterior longitudinal ligament (59410-51). 3. C5 caudal hemicorpectomy with resection of osteophytes and posterior longitudinal ligament (54672-07). 4. Insertion of biomechanical device/corpectomy cage C3-C5 (73371). 5. C3-C5 anterior instrumentation (83720-60). 6. C3-C4 arthrodesis. (85202) 7. C4-C5 arthrodesis. (44688) 8. Kyphosis deformity correction/islam of lordosis. (66267) 9. Bone autograft (65291). 10. Bone allograft (61788). 11. Microsurgical dissection (28069). 12. Fluoroscopy. (09154-85) FINDINGS: 1. Severe C3-C5 spinal stenosis; spinal cord bulging into field following decompression 2. Anterior wedging/collapse of C5 vertebrae, necessitating hemicorpectomy to level/flatten the end plate and prevent corpectomy cage migration 3. Improvement in LUE MEP's following decompression IMPLANTS: 1. Cage: Choice Spine Middle [place] [id number]. 2. Plate: Precision Spine Simplicity 35mm. 3. Screws: 4 x 12x4mm. ANESTHESIOLOGIST: Shade Terry MD ANESTHESIA: General endotracheal tube anesthesia. POSITION: Supine. INCISION: Right oblique anterior. ESTIMATED BLOOD LOSS: 100cc. TRANSFUSIONS: None. INTRAVENOUS FLUID: 2L crystalloid. SPECIMENS: C3-4, C4-C5 discs. DRAINS: 1 x deep HemoVac. COMPLICATIONS: None. URINE OUTPUT: See anesthesia record. BACTERIOLOGY: None. CLOSURE: 2-0 Vicryl and 3-0 Biosyn absorbable suture. INDICATIONS: The patient was indicated for a C3-C5 anterior cervical decompression, reconstruction, and instrumented fusion to prevent the progression of already worsening neurological decline. The patient was identified in the holding area by her armband. A long discussion was held with the patient regarding the risks, benefits and alternatives of the above-named procedure. The risks include, but are not limited to: pain, bleeding, infection, damage to surrounding structures (including nerves, blood vessels, skin, ligaments, tendons, and bone), dysphagia, dysphonia, nerve palsy, weakness, limp, wound complications, pseudarthrosis, failure of fusion, failure of hardware/implants/reduction, need for further surgery, blood clots, myocardial infarction, pulmonary embolism, cerebrovascular event, anesthesia complications, neurological injury, loss of function, and . Benefits as mentioned above. Alternatives include no surgery. All questions were answered. The patient understood and agreed to the procedure. Informed consent was obtained, witnessed, and verified by hospital nursing staff. The patients anterior neck was marked. The patient was then seen by the anesthesia and nursing staff and then taken to the operating room. PROCEDURE: The patient was brought into the operating room and transferred to the OR table, and secured with a safety strap. Consent and the operative site were again verified with the patient, the nursing team, the surgical team, and the anesthesiology team. Anesthesia, IV antibiotics, TXA, and 10mg IV Decadron were then administered without complication. A time out was done, led by me the attending surgeon. An indwelling Westfall catheter was successfully inserted by the nursing team. The intra-operative neural monitoring team then set up for the case. Pre-positional baseline SSEP, MEP, & EEG readings were recorded. The patient was positioned in the supine position with arms tucked and placed under gentle traction using tape over her shoulders. All bony prominences were very well padded. A bump was placed beneath the scapulae to facilitate extension of the patients neck. A C-arm fluoroscopy unit was positioned perpendicularly to the table and maintained at the level of the head, except when needed. The intended surgical level was confirmed using fluoroscopy, and a deep neck crease in the lines of Rebecca at this level was targeted for incision. Intra-operative neural monitoring revealed no change between pre-positional and post-positional readings. The operative site was then prepped and in the standard sterile fashion using betadine prep and scrub, wiped off with alcohol, Duraprep applied, and then free draped. Pre-operative imaging was available for intra-operative evaluation. Time-out was again done, and the case began. A standard, Olivier-Alvarez approach to the cervical spine was utilized. An oblique anterior incision was made on the right side of the patients neck in the lines of Rebecca in standard fashion. Numerous distended branches of the anterior jugular vein were encountered, tied off, and cauterized in order to continue the exposure. Dissection was carried through the investing layer of fascia and finger palpation was used to create a plane lateral to the strap muscles between the carotid sheath and the viscera. Next, the esophagus and trachea were visualized as was the carotid sheath. Hand-held retractors were used to retract these structures safely out of the way, allowing direct access to the anterior cervical spine. The prevertebral fascia overlying the anterior cervical spine was then split using peanut swabs. An 18-gauge spinal needle was bent and used to localize the indicated surgical level under fluoroscopy. Next, the medial borders of the Longus Coli musculature were gently released over the anterolateral borders of the vertebral bodies and disc spaces using monopolar electrocautery. A self-retaining retractor system was used with the teeth of the blades retracting the belly of the longus coli muscles, and with the retractors themselves safely retracting the carotid sheath laterally and viscera medially. One 12mm Davenport pin was then placed into the center of the vertebral bodies of C3 and C5. The Davenport pin placement was confirmed via fluorscopy. A Davenport pin distractor system was applied with no distraction at this stage. Additionally, the distractor barrels served as superior and inferior soft tissue retractors. The microscope was then introduced. Bridging osteophytes had grown over the disc spaces at C3-C4 and C4-C5. These osteophytes were resected using a pituitary rongeur. Using monopolar electrocautery, the annulus of the C3-C4, and C4-C5 discs were incised. The discs were morselized using a curette and excised using a pituitary rongeur. This completed the C4-C5, and C5-C6 discectomies. A Matchstick nathaniel-tipped mode was then used to cut a trough onto the left and right-hand side of the C4 vertebral body just medial to the waist of the vertebral body, and thus medial to the plane of the vertebral arteries. The C3-C4, and C4-C5 disc spaces were then also burred out. The remaining bone was delivered with a Leksell rongeur. All of this bone was saved for grafting purposes as an autologous graft. A 4mm ball-shaped, nathaniel-tipped mode was utilized to complete the debulking of the residual bone. This completed the C4 corpectomy. An undercutting partial corpectomies were performed at C3 and at C5 using a mode and Kerrison rongeurs. A corpectomy (at C4) and partial corpectomies (at C3 and C5) were performed in order to be able to decompress stenosis material (posterior longitudinal ligament complex and osteophytes) posterior to the vertebral bodies that would otherwise be inaccessible. This material had to be decompressed in order to relieve the severe spinal stenosis from C3-C5 that otherwise would not have been removed simply by performing discectomies at C3-C4, and C4-C5. A small Logan type elevator was utilized to ensure that all PLL complex was free from adhesion to the theca from C3-C5. There was no evidence of OPLL. The visible posterior longitudinal ligament was released and excised utilizing Kerrison rongeur upcuts. This ensured complete decompression proximally and distally from C3-C5. Immediately, the theca expanded anteriorly into the decompressed space and evidence of chronic stenosis was evidence by its residual hourglass configuration. An angled ball-tipped probe was gently used to ensure that all foramina bilaterally from C3-C5 were decompressed. Our decompression of the cervical spine was successfully achieved. Gentle distraction was applied to the Davenport pins. Next, a Choice Spine Middle [place] intervertebral cage was measured using calipers and osteotomes to fit the space created. The cage was filled with autologous bone derived from the corpectomies, along with demineralized bone matrix putty allograft. The cage was then gently tapped into position. This completing the anterior column reconstruction and anterior arthrodesis of the cervical spine. The patients head was gently flexed under live fluoroscopy to allow the teeth of the cage to engage the adjacent bone and ensure compression fixation of the cage itself. The was no evidence of mal-position or instability of the cage with flexion and extension of the cervical spine during live fluoroscopy. The Davenport pins were removed and the holes from the Davenport pins at C3 and C5 were plugged with bone wax. A Precision Spine Slimplicity plate was sized and 12mm screws were used to provide solid fixation of the plate to the anterior C3 and C5 vertebral bodies. Fluoroscopic images in the AP and lateral plane showed implants to be in good position and with good overall alignment of the cervical spine. The screws were then locked using the plate-screw locking mechanism. The anesthesiologist then performed a Valsalva maneuver up to 40mmHg. There was no evidence of dural defect, cerebrospinal fluid leak, or uncontrollable bleeding. Throughout the case, copious irrigation was performed, and hemostasis was assured. A deep 1/8 HemoVac drain was placed. The wound was closed primarily using 2-0 Vicryl and 3-0 Biosyn sutures. A sterile compressive dressing was applied. Sponge and needle counts were correct at the end of the case, and I, the attending surgeon, was present and scrubbed throughout the case. A Greenbush-J hard cervical collar was then applied. The patient was then extubated by the anesthesia staff without incident or complications and was then transferred to the recovery room in stable condition having tolerated the procedure well. OVERALL COMMENTS: Overall the case went well. Intra-operative neural monitoring readings improved from baseline at the end of the case. MD SANGEETA De La Torre/[id number] MTDPeter
[2020-04-29] MEDS: ATORVASTATIN CA 10 MG TABLET (FP) PO SCH (21:08)
--- NOTE | 2020-04-29 22:06 | PN ---
Teaching Attending Note Name of Resident: Erendira Ferguson ATTENDING PHYSICIAN STATEMENT I saw and evaluated the patient. I reviewed the resident's note and discussed the case with the resident. I agree with the resident's findings and plan as documented. SUBJECTIVE: Patient seen and examined at bedside, ambulating around room, C collar placed, denies complaints. VSS. OBJECTIVE: GA AAox3, speaking in full sentences HEENT NC, c collar placed, neck w/ limited ROM Chest CTAB, no crackles or wheezing CVS S1, S2+, RRR Abd SOft, NT, ND ,BS+ Ext no LE edema Vital Signs (72 hours) 04/27/20 04/27/20 04/27/20 06:35 06:38 06:39 Temperature 97.3 F L 97.3 F L Pulse Rate 63 63 Respiratory 20 20 Rate Blood Pressure 125/77 125/77 O2 Sat by Pulse 99 99 99 Oximetry (%) 04/27/20 04/27/20 04/27/20 13:00 13:15 13:30 Temperature 98.4 F Pulse Rate 95 H 88 7 L Respiratory 11 19 11 Rate Blood Pressure 137/72 138/69 114/95 O2 Sat by Pulse 99 100 100 Oximetry (%) 04/27/20 04/27/20 04/27/20 13:45 13:48 14:00 Temperature Pulse Rate 82 82 72 Respiratory 15 15 12 Rate Blood Pressure 136/81 136/81 143/76 O2 Sat by Pulse 100 100 100 Oximetry (%) 04/27/20 04/27/20 04/27/20 14:15 14:20 14:30 Temperature Pulse Rate 74 77 80 Respiratory 12 12 18 Rate Blood Pressure 128/71 143/76 126/74 O2 Sat by Pulse 100 100 100 Oximetry (%) 04/27/20 04/27/20 04/27/20 14:45 14:50 15:00 Temperature Pulse Rate 70 79 73 Respiratory 12 13 18 Rate Blood Pressure 96/77 126/73 126/73 O2 Sat by Pulse 100 100 100 Oximetry (%) 04/27/20 04/27/20 04/27/20 15:15 15:19 15:20 Temperature 98.4 F Pulse Rate 88 70 72 Respiratory 12 12 17 Rate Blood Pressure 143/67 143/70 143/70 O2 Sat by Pulse 100 100 100 Oximetry (%) 0904/27/20 04/27/20 15:55 16:44 17:00 Temperature 98.3 F Pulse Rate 76 84 70 Respiratory 20 20 20 Rate Blood Pressure 148/67 135/92 141/69 O2 Sat by Pulse 100 100 100 Oximetry (%) 04/27/20 04/27/20 04/27/20 17:55 18:00 19:10 Temperature Pulse Rate 80 76 Respiratory 20 20 20 Rate Blood Pressure 141/69 148/67 O2 Sat by Pulse 100 100 100 Oximetry (%) 04/27/20 04/27/20 04/27/20 20:00 21:00 22:00 Temperature Pulse Rate 82 66 Respiratory 18 12 17 Rate Blood Pressure 135/65 128/67 O2 Sat by Pulse 98 100 100 Oximetry (%) 04/28/20 04/28/20 04/28/20 00:00 02:00 04:00 Temperature 98.1 F Pulse Rate 58 L 54 L 54 L Respiratory 17 16 16 Rate Blood Pressure 117/66 119/64 118/63 O2 Sat by Pulse 100 100 100 Oximetry (%) 04/28/20 04/28/20 04/28/20 06:00 09:00 11:00 Temperature 98.6 F Pulse Rate 58 L 54 L 60 Respiratory 16 18 18 Rate Blood Pressure 145/70 130/67 125/66 O2 Sat by Pulse 100 99 Oximetry (%) 04/28/20 04/28/20 04/28/20 12:00 14:00 16:00 Temperature 98.8 F Pulse Rate 66 64 67 Respiratory Rate Blood Pressure 132/66 124/62 128/76 O2 Sat by Pulse 98 99 Oximetry (%) 04/28/20 04/28/20 04/28/20 18:00 20:00 22:00 Temperature 98.0 F Pulse Rate 73 79 90 Respiratory 18 16 14 Rate Blood Pressure 139/68 116/63 122/66 O2 Sat by Pulse Oximetry (%) 04/29/20 04/29/20 04/29/20 00:00 02:00 05:00 Temperature 98.2 F Pulse Rate 80 79 76 Respiratory 12 14 15 Rate Blood Pressure 111/56 L 119/68 180/64 H O2 Sat by Pulse 94 L Oximetry (%) 04/29/20 04/29/20 04/29/20 08:00 08:21 10:00 Temperature 100.3 F H Pulse Rate 88 86 Respiratory 16 15 16 Rate Blood Pressure 125/86 138/71 O2 Sat by Pulse 94 L Oximetry (%) 04/29/20 04/29/20 04/29/20 12:00 14:00 16:00 Temperature 99.6 F Pulse Rate 74 88 94 H Respiratory 18 16 18 Rate Blood Pressure 132/68 159/53 L 139/69 O2 Sat by Pulse Oximetry (%) 04/29/20 18:00 Temperature Pulse Rate 83 Respiratory 17 Rate Blood Pressure 165/71 O2 Sat by Pulse Oximetry (%) Laboratory Results - last 24 hr 04/29/20 04/29/20 04/29/20 08:40 08:40 08:40 WBC 13.3 H RBC 3.49 L Hgb 11.3 Hct 33.1 MCV 94.9 MCH 32.4 MCHC 34.1 RDW 12.6 Plt Count 266 MPV 9.2 Sodium 143 Potassium 3.7 Chloride 107 Carbon Dioxide 30 Anion Gap 6 L BUN 10.3 Creatinine 0.7 Est GFR (CKD-EPI)AfAm 109.15 Est GFR (CKD-EPI)NonAf 94.17 Random Glucose 87 Hemoglobin A1c % 4.8 Calcium 8.7 Phosphorus 2.5 Magnesium 2.0 Total Bilirubin 2.0 H AST 39 H ALT 50 Alkaline Phosphatase 68 Total Protein 6.4 Albumin 3.3 L Home Medications Medication Instructions Recorded Hydrochlorothiazide [Hctz -] 12.5 mg PO DAILY 10/24/19 Lisinopril 10 mg PO DAILY 10/24/19 Metoprolol Tartrate 50 mg PO BID 10/24/19 Paroxetine HCl [Paxil Cr] 12.5 mg PO DAILY 10/24/19 Simvastatin 10 mg PO HS 10/24/19 oxyCODONE HCL [Roxicodone -] 5 mg PO PRN PRN 04/24/20 Nicotine Patch [Nicoderm Patch -] 1 patch TD DAILY 04/27/20 Current Medications Generic Name Dose Route Start Last Admin Trade Name Freq PRN Reason Stop Dose Admin Acetaminophen 650 mg 04/29/20 10:27 04/29/20 16:00 Tylenol - PO 325 mg Q6H PRN Administration Fever Atorvastatin Calcium 10 mg 04/27/20 22:00 04/29/20 21:08 Lipitor - PO 10 mg HS BRENDA Administration Benzocaine/Menthol 1 each 04/29/20 09:08 04/29/20 10:00 Cepacol Lozenge - MM 1 each PRN PRN Administration SORE THROAT Dexamethasone Sodium Phosphate 4 mg 04/27/20 13:03 Decadron Injection - IVPUSH ONCE PRN NAUSEA AND/OR VOMITING Diphenhydramine HCl 12.5 mg 04/27/20 13:03 Benadryl Injection - IVPUSH ONCE PRN FOR ITCHING Hydrochlorothiazide 12.5 mg 04/28/20 10:00 04/29/20 09:41 Hctz - PO 12.5 mg DAILY BRENDA Administration Lisinopril 10 mg 04/28/20 10:00 04/29/20 09:41 Prinivil PO 10 mg DAILY BRENDA Administration Metoprolol Tartrate 50 mg 04/27/20 22:00 04/29/20 21:08 Lopressor - PO 50 mg BID BRENDA Administration Nicotine 21 mg 04/28/20 10:00 04/29/20 09:42 Nicoderm Patch - TD 21 mg DAILY BRENDA Administration Ondansetron HCl 4 mg 04/27/20 13:03 Zofran Injection IVPUSH Q4H PRN NAUSEA AND/OR VOMITING Oxycodone HCl 5 mg 04/27/20 12:44 04/29/20 21:13 Roxicodone - PO 5 mg Q4H PRN Administration PAIN LEVEL 1-5 Oxycodone HCl 10 mg 04/27/20 12:44 04/29/20 07:59 Roxicodone - PO 10 mg Q4H PRN Administration PAIN LEVEL 6-10 Paroxetine HCl 10 mg 04/28/20 10:00 04/29/20 09:41 Paxil - PO 10 mg DAILY BRENDA Administration Promethazine HCl 12.5 mg 04/27/20 13:03 Phenergan Injection - IVPB Q6H PRN NAUSEA AND/OR VOMITING ASSESSMENT AND PLAN: 59 F s/p C3-C5 corpectomy HTN HLD Depression Plan: Pain controlled off [facility]STITUTION[facility] NUTRITION CONSULTANT Tylenol for pain control Bump in Tbili, ?steroid induced, hydrate and follow, denies abd. pain PT referral NSG following DVT ppx: Ambulation Monitor on floors
[2020-04-30] MEDS: oxyCODONE HCL 5 MG TABLET PO PRN ×2 (06:06→15:30)
[2020-04-30 07:23] LABS: BASO % 0.5 % (0-2.0); EOS % 1.4 % (0-4.5); HEMATOCRIT 34.5 % (32.4-45.2); HEMOGLOBIN 11.6 GM/dL (10.7-15.3); LYMPH % 23.3 % (8-40); MCH 31.5 pg (25.7-33.7); MCHC 33.7 g/dl (32.0-36.0); MEAN CELL VOLUME 93.5 fl (80-96); MEAN PLT VOLUME 8.9 fl (7.5-11.1); MONO % 6.2 % (3.8-10.2); NEUT % 68.6 % (42.8-82.8); PLATELET COUNT 284 K/MM3 (134-434); RBC 3.69 M/mm3 (3.60-5.2); RDW 12.6 % (11.6-15.6)
[2020-04-30 07:50] LABS: ALBUMIN 3.4 g/dl (3.4-5.0); BILIRUBIN,TOTAL 1.6 mg/dL (0.2-1); CREATININE 0.7 mg/dL (0.55-1.3); MAGNESIUM 1.8 mg/dL (1.8-2.4); PHOSPHOROUS 3.3 mg/dL (2.5-4.9); POTASSIUM 3.7 mmol/L (3.5-5.1); TOT PROT 6.6 g/dl (6.4-8.2)
--- NOTE | 2020-04-30 08:39 | PN ---
Progress Note (short form) - Note Progress Note: POD#3 Pt with slight left sided headache today, slightly improved from yesterday. Tolerating a diet. Flatus/no BM. OOB and ambulating. Vital Signs Period Temp Pulse Resp BP Sys/Fonseca Pulse Ox Last 24 Hr 99.4 F-100.3 F 70-94 14-18 132-165/53-88 94-98 GEN: A&0x3, NAD Heent: Dressing c/d/i. No masses/swelling. Collar from orthopedic service in [facility]. Abd: soft, non-distended. non-tender Neuro: studio assistant strength equal b/l. 5/5 dorsi/plantar/EHL b/l. no calf swelling or tenderness b/l. CBC, BMP 09/17/ 06:08 / 06:08 Hepatic Panel Total Bilirubin 1.6 mg/dL (0.2-1) H /17/ 06:08 AST 56 U/L (15-37) H / 06:08 ALT 71 U/L (13-61) H 04/30/20 06:08 Alkaline Phosphatase 71 U/L (45-117) 17/ 06:08 Albumin 3.4 g/dl (3.4-5.0) // 06:08 A/p: 59 yo female s/p C3-C4 discectomy with C3& C5 hemicorpectomy /C4 corpectomy and cage C3-C5 placement. Deformity correction (kyphosis) with christian of lordosis . Bone autograft/Bone allograft. POD#3 Pts surgical pain well controlled with oral pain medications. Script sent for oxycodone. She has valium and a few percocet from her previous prescriptons at home. Added fiorcet for headache today and at home. Nicotine patches at home. Plan for discharge to home today D/w Dr. Morejon and the medical team. Home surgical discharge instructions completed.
[2020-04-30 09:21] LABS: BLOOD UREA NITROGEN 8.2 mg/dL (7-18)
[2020-04-30] MEDS ORDERED: ACETAMINOPHEN/CAFFEINE/BUTALBITAL 1 TAB PO ONE (09:30)
[2020-04-30] MEDS: NICOTINE 21 MG/24 HOURS TOPICAL PATCH TD SCH (09:40)
[2020-04-30] MEDS: LISINOPRIL 10 MG TABLET (FP) PO SCH (09:41)
[2020-04-30] MEDS: PARoxetine HCL 10 MG TABLET PO SCH (09:41)
[2020-04-30] MEDS: METOPROLOL TARTRATE 50 MG TABLET (FP) PO SCH (09:41)
[2020-04-30] MEDS: HYDROCHLOROTHIAZIDE 12.5 MG CAPSULE (FP) PO SCH (09:41)
[2020-04-30] MEDS: BENZOCAINE/MENTH/CETYLPYRD CL 1 EACH LOZENGE MM PRN ×2 (09:47→16:00)
--- NOTE | 2020-04-30 14:22 | PATH ---
Surgical Pathology Report Patient Name: ADRIANNE KING [facility]. Rec. #: [id number] /Age/Gender: 1960 (Age: 59) / F Account: [id number] Location: [facility] Taken: 04/27/2020 Received: 04/27/2020 Reported: 04/30/2020 Physicians: Luis F Morejon M.D. Specimen(s) Received C4 DISC Clinical History Cervical disc disorder Final Diagnosis C4 DISC, DISCECTOMY: PORTIONS OF CARTILAGE AND BONE WITH FOCAL DEGENERATIVE CHANGE. Electronically Signed Irene Davila M.D. Gross Description Received in formalin, labeled "C4 disc" are multiple irregular portions of bone and cartilaginous tissue measuring 2.0 x 2.0 x 0.5 cm aggregate. Harvester Operator portions submitted in one cassette following decalcification.
--- NOTE | 2020-04-30 15:18 | PN ---
Teaching Attending Note Name of Resident: Shalini Boo ATTENDING PHYSICIAN STATEMENT I saw and evaluated the patient. I reviewed the resident's note and discussed the case with the resident. I agree with the resident's findings and plan as documented. SUBJECTIVE: No fever or chills. minimal pain in anterior neck and with swallowing. no chocking, no SOB . no weakness, numbnes tingling. she has L sided SARMIENTO , better compared to yesterday. has h/o Migraines OBJECTIVE: NAD Anterior neck dressing which is clean, and with clean surrounding skin with no erythema . no stridor. CV: RRR, no MRG lungs: CTAB Abd: soft, NT, minimal TTP in epigastric area, neg Paula's , NL BS ASSESSMENT AND PLAN: 59 y/o lady with h/o HTN, HLP, Cholecystectomy, and spinal cervical stenosis who was admitted for C spine sx. 1- C spinal stenosis, s/p C spine ACDF. 2- h/o HTN, 3- transaminitis : do not suspect obstruction , ? fatty liver and statin . plan : - doing well after sx. - will get US to r/o any signofocant abn in biliary tree. if neg , can dc home - d/w Dr. Morejon. keep neck dressing intact until f/u in 1 week neck colar on . - cont HTN meds - hold statin - repeat LFTS and CBC in 1 week . -no signs of infection . mild leukocytosis is likely reactive and improving - pain meds were sent by surgical team dc home if US is neg
[2020-04-30] MEDS: ACETAMINOPHEN 325 MG TABLET (FP) PO PRN (15:31)
[2020-04-30 17:40] VITALS: BP 131/66; PULSE 82; TEMP 99.3
--- NOTE | 2020-04-30 18:50 | DS ---
Physical Exam: SUBJECTIVE: Patient seen and examined. No acute events overnight. OBJECTIVE: Vital Signs Period Temp Pulse Resp BP Sys/Fonseca Pulse Ox Last 24 Hr 99.2 F-99.8 F 70-87 14-20 112-159/63-88 94-98 PHYSICAL EXAM GENERAL: The patient is awake, alert, and fully oriented, in no acute distress. HEENT: NCAT, EOMI, moist mucus membranes. Mild erythema in posterior pharynx. NECK: Neck collar present. Incision site clean, dry, intact. LUNGS: CTA b/l, no wheezes or stridor. HEART: Regular rate and rhythm, S1, S2 without murmur, rub or gallop. ABDOMEN: Soft, minimally tender to palpation in epigastric region, nondistended, normoactive bowel sounds EXTREMITIES: NEUROLOGICAL: sensation intact, moving all extremities spontaneously. Strength 5/5 b/l UE and LE. SKIN: Warm, dry LABS CBC, BMP 04/30/20 06:08 04/30/20 06:08 HOSPITAL COURSE: 59 yo F w/ PMH of HTN, HLD, and depression who was admitted for C3-C5 anterior cervical decompression and instrumented fusion. She was admitted to the ICU for post-operative airway observation. Pt had no complications with her airway du ring her admission. Pt participated in PT and was tolerating her diet. Only complained of mild throat pain since intubation during the procedure. Pt stated she was able to swallow without issues. Pt found to have elevated LFTs with elevated total billirubin. Liver US done to show a heterogenous liver. She was instructed to f/u with her PCP regarding repeat LFT and CBC. Pt is hemodynamically stable and medically optimized to be discharged home. Date of Admission:04/27/20 Date of Discharge: 04/30/20 Minutes to complete discharge: 36 Discharge Summary Problems reviewed: Yes Reason For Visit: CERVICAL DISC DISORDER Condition: Improved - Instructions Diet, Activity, Other Instructions: Post Operative Instructions Physical Activity Resume your normal everyday activity as tolerated. No heavy lifting or exercise until seen by your surgeon. You may walk unlimited amounts and climb stairs. You may resume driving the car when you feel safe and comfortable behind the wheel and you are no longer wearing your brace. Do not operate a vehicle while taking narcotic medication. Brace If you had neck surgery, wear surgical collar at all times. NO showers Wound Care Keep your incision clean, dry and covered at all times. keep dressignintact and dry until you folow with Dr. em in 1 week after dc .please call and make the appointment Diet There are no dietary restrictions. Eat healthy, high-fiber foods. Drink 6-8 glasses of liquid each day. This will assist in keeping your bowels regular. Pain Management You may take Tylenol or acetaminophen. Any pain prescription medication ordered should be taken as prescribed for moderate to severe pain. Avoid any ibuprofen (Motrin, Advil, Aleve, Toradol, etc) for 3 months unless otherwise discussed with your surgeon. Severe pain not relieved by medication Fever of 101 or higher Excessive bleeding or drainage on dressing Inability to urinate Any chest pain or shortness of breath, seek Emergency Care. Call the office to confirm a post-operative appointment for 1 week weeks post-op [employer] Rx Written Rx Dispensed Drug Quantity Days Supply Prescriber Nam Payment Method Dispenser 03/10/2020 03/13/2020 hydrocodone-acetaminophen 5-325 mg tablets 90 30 Luis F Morejon) [facility] 03/10/2020 03/13/2020 diazepam 5 mg tablet 90 30 Luis F Morejon) [facility] medical instructions Your visit: You were admitted to the hospital for a neck surgery. There were no concerning complications during the procedure. We did imaging of your neck afterwards and found no concerning findings. You were treated with pain medication with impro vement of your symptoms. Additional imaging: You had elevated laboratory values of your liver. We performed an ultrasound of your liver to evaluate this. Please follow up with your primary care doctor in 1 week. You will need to repeat your blood work in 1 week to monitor these values. Medications changes: -Continue to take all other home medications as prescribed. Follow up: - Please follow-up with your Orthopedic surgeon, Dr. Morejon, in 1 weeks. - Visit with your Primary Care Provider in 2 weeks. If you do not have a primary care provider you may make an appointment with Dr. Rudolph at the [facility] clinic located at [address] [place] [address] ([phone]). You will need to follow up on your Complete Blood Count (CBC) and Liver Function test (LFT) in 1 week. Additional Instructions: -You are being discharged to your home. -Please return to the Emergency Department if you experience worsening pain, fevers, chills, shortness of breath, or chest pain, or if you experience any worsening, new or concerning symptoms. please have your primary doctor repeat your liver function tests, and white coun t in 1 week after dc stop taking lipitor for now until your blood work is repeated due to elevation in liver tests Referrals: Alison Rudolph MD [Staff Physician] - 1 Week Rayshawn Morejon MD [Staff Physician] - 1 Week Disposition: HOME - Home Medications Comprehensive Discharge Medication List: Ambulatory Orders Hydrochlorothiazide [Hctz -] 12.5 mg PO DAILY 10/24/19 Lisinopril 10 mg PO DAILY 10/24/19 Metoprolol Tartrate 50 mg PO BID 10/24/19 Paroxetine HCl [Paxil Cr] 12.5 mg PO DAILY 10/24/19 Butalb/Acetaminophen/Caffeine [Fioricet 50-300-40 mg Capsule] 1 each PO Q6H PRN #10 capsule MDD 4 04/30/20 Docusate Sodium [Colace -] 100 mg PO BID #14 capsule 04/30/20 Oxycodone HCl [Oxaydo] 5 mg PO Q6H PRN #30 tablet.orl MDD 8 04/30/20 This patient is new to me today: No Emergency Visit: No Critical Care patient: No - Discharge Referral Referred to [facility] No ATTENDING PHYSICIAN STATEMENT I saw and evaluated the patient. I reviewed the resident's note and discussed the case with the resident. I agree with the resident's findings and plan as documented. SUBJECTIVE: OBJECTIVE: ASSESSMENT AND PLAN:
== END 2020-04-30 18:20 | disposition home or self-care (01) | DRG 29 ==
LOC: JASUSAT 05:28 → EDSTATUS 08:00 → JASUSAT 12:44 → JICU 15:41
PROVIDERS: ADMIT Orthopaedic Surgery Adult Reconstructive Orthopaedic Surgery; ATTEND Internal Medicine
PROC: 0RG1070 Fusion of Cervical Vertebral Joint with Autologous Tissue Substitute, Anterior Approach, Anterior Column, Open Approach (ICD-10-PCS; 2020-04-27)
PROC: 0PB30ZZ Excision of Cervical Vertebra, Open Approach (ICD-10-PCS; 2020-04-27)
PROC: 00NW0ZZ Release Cervical Spinal Cord, Open Approach (ICD-10-PCS; 2020-04-27)
PROC: 0PS304Z Reposition Cervical Vertebra with Internal Fixation Device, Open Approach (ICD-10-PCS; 2020-04-27)
PROC: B01BZZZ Fluoroscopy of Spinal Cord (ICD-10-PCS; 2020-04-27)
PROC: 4A1004G Monitoring of Central Nervous Electrical Activity, Intraoperative, Open Approach (ICD-10-PCS; 2020-04-27)
PROC: 0RG10A0 Fusion of Cervical Vertebral Joint with Interbody Fusion Device, Anterior Approach, Anterior Column, Open Approach (ICD-10-PCS; principal; 2020-04-27 08:00)
DX: M54.12 Radiculopathy, cervical region (principal); M50.00 Cervical disc disorder with myelopathy, unspecified cervical region; M48.062 Spinal stenosis, lumbar region with neurogenic claudication; M48.02 Spinal stenosis, cervical region; M40.292 Other kyphosis, cervical region; M43.02 Spondylolysis, cervical region; I10 Essential (primary) hypertension; E78.5 Hyperlipidemia, unspecified; D72.829 Elevated white blood cell count, unspecified; F32.9 Major depressive disorder, single episode, unspecified; R74.0 Nonspecific elevation of levels of transaminase and lactic acid dehydrogenase [LDH]
CPT/HCPCS: 36415; 72050-TC-FY; 76000-TC-FY; 76705-TC; 80053; 83036; 83735; 84100; 85025; 85027; 86850; 86891; 86900; 86901; 88304-TC; 94010; 94760; 97116-GP; 97162-GP; J1100; J1644